=== PATIENT | female | born 1950 | race Caucasian/White ===

== ENCOUNTER 2016-09-14 13:47 | Emergency (ER) | payer OTHER ==
[~2016-09-14] VITALS: Ht 172.7 cm; Wt 86.4 kg
[2016-09-14] MEDS ORDERED: TOPROL XL50 MG PO (15:01)
[2016-09-14] MEDS ORDERED: FENOFIBRATE160 M1 PO (15:01)
[2016-09-14] MEDS ORDERED: PEPCID20 MG PO (15:02)
[2016-09-14] MEDS ORDERED: NORVASC10 MG PO (15:02)
[2016-09-14] MEDS ORDERED: PROTONIX40 MG PO (15:02)
[2016-09-14] MEDS ORDERED: ASPIR 8181 M1 PO (15:03)
[2016-09-14] MEDS ORDERED: NORCO 5/3251 TABLET PO (15:39)
[2016-09-14 16:09] VITALS: BP 143/84
== END 2016-09-14 16:11 | disposition home or self-care (01) ==
LOC: EME 13:47
PROC: 2W3BX1Z Immobilization of Left Upper Arm using Splint (ICD-10-PCS; principal; 2016-09-14)
DX: S42.352A Displaced comminuted fracture of shaft of humerus, left arm, initial encounter for closed fracture (principal); W00.0XXA Fall on same level due to ice and snow, initial encounter; Y93.01 Activity, walking, marching and hiking; Z79.82 Long term (current) use of aspirin; Z87.891 Personal history of nicotine dependence; Z88.2 Allergy status to sulfonamides
CPT/HCPCS: 73060; 99281; 99285